=== PATIENT | male | born 1970 | race Caucasian/White ===

== ENCOUNTER 2020-01-26 09:45 | Day surgery (SDC) | payer BC, OTHER ==
[2020-01-26] MEDS ORDERED: propofoL 200 MG/20 ML VIAL ONE (10:26)
[2020-01-26] MEDS ORDERED: LIDOCAINE 2% 100MG/5ML SDV (FOR ANES.) ONE (10:26)
--- NOTE | 2020-03-02 11:33 | ROOR ---
Patient Name: Hugo Davey Procedure Date: 01/26/2020 8:03 AM Date of : 1970 Age: 49 Room: [facility] Gender: Male Note Status: Finalized Procedure: Colonoscopy Indications: Screening for colorectal malignant neoplasm Providers: Sage BLACKMON MD Referring MD: VARUN FINCH NP Requesting Provider: Medicines: Monitored Anesthesia Care Complications: No immediate complications. Procedure: Pre-Anesthesia Assessment: - The heart rate, respiratory rate, oxygen saturations, blood pressure, adequacy of pulmonary ventilation, and response to care were monitored throughout the procedure. The Colonoscope was introduced through the anus and advanced to the terminal ileum, with identification of the appendiceal orifice and IC valve. The colonoscopy was performed without difficulty. The patient tolerated the procedure well. The quality of the bowel preparation was good. Findings: The perianal and digital rectal examinations were normal. A diminutive polyp was found in the hepatic flexure. The polyp was sessile. The polyp was removed with a cold snare. Resection and retrieval were complete. Small Internal Hemorrhoids. The exam was otherwise without abnormality on direct and retroflexion views. Impression: - One diminutive polyp at the hepatic flexure, removed with a cold snare. Resected and retrieved. - Small Internal Hemorrhoids. - The examination was otherwise normal on direct and retroflexion views. Recommendation: - Repeat colonoscopy in 5 years for surveillance. Sage BLACKMON MD 01/26/2020 10:43:24 AM Number of Addenda: 0 Note Initiated On: 01/26/2020 8:03 AM Estimated Blood Loss: Estimated blood loss: none.
== END 2020-01-26 11:15 | disposition home or self-care (01) ==
LOC: M SDC 09:45
PROVIDERS: ATTEND Internal Medicine Gastroenterology
DX: D12.6 Benign neoplasm of colon, unspecified (principal); I10 Essential (primary) hypertension; Z79.899 Other long term (current) drug therapy

== ENCOUNTER → 2023-05-09 | Outpatient (CLI) | payer OTHER | LOC: M RAD 16:44 | PROVIDERS: ATTEND Registered Nurse | DX: Z12.2 Encounter for screening for malignant neoplasm of respiratory organs (principal); Z87.891 Personal history of nicotine dependence ==

== ENCOUNTER → 2024-06-19 | Outpatient (CLI) | payer OTHER | LOC: M PLALAB 14:00 | PROVIDERS: ATTEND Student in an Organized Health Care Education/Training Program | DX: R79.9 Abnormal finding of blood chemistry, unspecified (principal) ==

== ENCOUNTER 2024-09-12 17:37 | Emergency (ER) | payer OTHER ==
[~2024-09-12] VITALS: Ht 162.6 cm; Wt 91.6 kg
[2024-09-12 23:31] VITALS: BP 135/85; TEMP 97; O2SAT 99
[2024-09-13] MEDS ORDERED: MUPI2OI TOP (00:06)
[2024-09-13] MEDS ORDERED: AMOX875T2 PO (00:06)
[2024-09-13] MEDS: BOOSTRIX VACCINE (TETANUS/DIPHTH/ACEL. PERTUSSIS) 0.5ML SYR IM ONE (00:14)
== END 2024-09-13 00:16 | disposition home or self-care (01) ==
LOC: M ED 17:37
DX: S61.011A Laceration without foreign body of right thumb without damage to nail, initial encounter (principal); Y92.019 Unspecified place in single-family (private) house as the place of occurrence of the external cause; Y93.9 Activity, unspecified; Y99.9 Unspecified external cause status; I10 Essential (primary) hypertension; Z79.2 Long term (current) use of antibiotics; Z23 Encounter for immunization